=== PATIENT | female | born 1935 | race Asian ===

== ENCOUNTER → 2020-06-03 13:14 | Outpatient (CLI) | payer MEDICARE, OTHER, SELFPAY ==
--- NOTE | 2020-06-03 | DI.MRI.S_ITS ---
PROCEDURE: MR LUMBAR SPINE WO CON INDICATIONS: Other intervertebral disc degeneration, lumbar reg TECHNIQUE: Noncontrast sagittal T1 spin echo and T2 fast echo, sagittal STIR, axial T1 and T2 fast spin echo through the lumbar spine. In cases with scoliosis, additional coronal T2 fast spin echo may be performed. COMPARISON: [facility] Outside Film, RG, SPINE LUMB 2 OR 3VW, 07/30/2019, 10:22. FINDINGS: Image quality: Excellent. Alignment and Curvature: There is minimal retrolisthesis seen at L2-L3, L3-L4, L4-L5, and L5-S1. Qkek-kh-kjngiyis dextroconvex lumbar scoliosis is present. Bone Marrow: Marrow is of normal overall signal. No acute vertebral body compression fractures. Spinal Cord: Conus medullaris terminates at the L1 level. Visualized cord demonstrates normal signal and size. Paraspinous Soft Tissues: No paravertebral masses. T12-L1: At least moderate loss of disc height and disc signal can be seen. Mild generalized disc bulge is seen. No significant neural foraminal or central canal narrowing can be seen. L1-L2: Moderate to severe loss of disc height and disc signal can be seen. Moderate to prominent disc bulge is seen, with a central disc protrusion. Mild facet joint hypertrophy is seen. There is moderate left-sided and moderate to severe right-sided neural foraminal narrowing seen. There is a degree of compression seen upon the exiting right L1 nerve root. Moderate to severe central canal narrowing is seen. L2-L3: Moderate to severe loss of disc height and disc signal can be seen. Endplate irregularity is seen. Reactive marrow endplate changes are seen, which demonstrate mixed T1 weighted and T2-weighted signal, and are attributed to a combination of edema and fatty metaplasia (Modic type I and Modic type II changes). Moderate to prominent disc bulge is seen, with a central/right disc protrusion. Moderate facet joint hypertrophy is seen. Associated hypertrophy of the ligamentum flavum can be seen. There is moderate to severe bilateral neural foraminal narrowing seen. There is a degree of compression seen upon the exiting nerve roots. Severe central canal narrowing is seen, as on series 5, image 12. L3-L4: Moderate loss of disc height is seen. Loss of disc signal is seen. At least moderate disc bulge is seen, which is eccentric to the left. There is a central/left disc extrusion seen, with inferior migration of the disc material. Moderate facet joint hypertrophy is seen. Associated hypertrophy of the ligamentum flavum can be seen. There is moderate to severe right-sided and severe left-sided neural foraminal narrowing seen. There is severe central canal narrowing seen at this level, as on series 5, image 16. L4-L5: The disc height is well-preserved. Loss of disc signal is seen at this level. Moderate disc bulge is seen, with a mild central disc extrusion, with mild inferior migration of the disc material. Moderate facet joint hypertrophy is seen. Associated hypertrophy of the ligamentum flavum can be seen. There is moderate to severe bilateral neural foraminal narrowing seen. There is a degree of compression seen upon the exiting nerve roots. Moderate to severe central canal narrowing is seen at this level. L5-S1: Mild loss of disc height is seen. Loss of disc signal is seen. The least moderate disc bulge is seen, which is eccentric to the right. There is a central disc extrusion, with inferior migration of the disc material. There is an associated annular fissure seen, as on series 2, image 8. At least moderate facet hypertrophy is seen. Associated hypertrophy of the ligamentum flavum can be seen. There is moderate to severe bilateral neural foraminal narrowing seen, with associated exiting nerve root compression. At least moderate central canal narrowing can be seen. IMPRESSION: Multiple levels of prominent degenerative change are seen. There is severe central canal narrowing seen at L2-L3 and L3-L4, with moderate to severe central canal narrowing seen at L1-L2 and L4-L5. Multiple sites of significant neural foraminal narrowing can be seen, with associated exiting nerve root compression. Dictated by: Ian Blackmon M.D. on 06/03/2020 at 14:12 Approved by: Ian Blackmon M.D. on 06/03/2020 at 14:17
== END ==
PROVIDERS: PCP Internal Medicine; Referring Provider Internal Medicine; Visit Provider Internal Medicine
DX: M51.36 Other intervertebral disc degeneration, lumbar region (principal); M48.061 Spinal stenosis, lumbar region without neurogenic claudication
CPT/HCPCS: 72148

== ENCOUNTER → 2020-09-22 14:35 | Outpatient (CLI) | payer MEDICARE, OTHER, SELFPAY ==
--- NOTE | 2020-09-22 | DI.ECHO.S_ITS ---
[facility] +---------+ : : [address] : [place] : : : : [id number] : : : : Phone: [phone] +---------+ Echocardiogram Report + + :Name: TORY CANTU Study Date: 09/22/2020 Height: 59 in : :[facility] ReadingLocation: Weight: 89 lb : : Gender: Female BSA: 1.3 m2 : :: 1935 Age: 85 yrs BP: 124/62 mmHg: :Reason For Study: AORTIC VALVE REPLACEMENT : :Ordering Physician: IRMA, : :YAA Performed By: Dary Rodriguez : :Referring: YAA SOLIS : + + Interpretation Summary The left ventricle is normal in size. The ejection fraction is estimated to be 65-70%. There has been no significant change in LVEF since the previous exam. The right ventricle is normal size. The right ventricular systolic function is normal. There is a bioprosthetic aortic valve. Patient is status post TAVR. The prosthetic aortic valve is well-seated. The peak aortic velocity is 2.4 m/sec. The aortic valve mean gradient is 13.7 mmHg. No aortic regurgitation is present. The IVC is of normal diameter and collapses greater than 50% with a sniff. This suggests a low right atrial pressure of 3 mm Hg. There is mild luminal irregularity and echogenicity in the abdominal aorta, suggestive of aortic atherosclerotic disease. Mild atherosclerotic plaque(s) in the aortic arch. Procedure: A two-dimensional transthoracic echocardiogram with color flow and Doppler was performed. The study quality was technically adequate. Comparison is made with the echocardiogram of 04/09/2017. The patient was in sinus rhythm with heart rates between 66-76 bpm during the exam. Left Ventricle: The left ventricle is normal in size. Proximal septal thickening is noted. Left ventricular wall thickness is mildly increased. There is no thrombus. The ejection fraction is estimated to be 65-70%. There has been no significant change since the previous exam. There are no focal wall motion abnormalities. MV E/A: 1.0 Med Peak E' Stephen: 3.5 cm/sec E/E' med: 33.4. Right Ventricle: The right ventricle is normal size. The right ventricular systolic function is normal. Atria: The left atrium is mildly dilated. Right atrial size is normal. There is no Doppler evidence for an interatrial shunt. Mitral Valve: The mitral valve leaflets appear mildly thickened, but open well. There is mild to moderate mitral annular calcification. There is mild mitral regurgitation. Compared to the prior echo study, there has been a decrease in the severity of mitral regurgitation. Aortic Valve: There is a bioprosthetic aortic valve. The prosthetic aortic valve is well-seated. The peak aortic velocity is 2.4 m/sec. The aortic valve mean gradient is 13.7 mmHg. No aortic regurgitation is present. Tricuspid Valve: The tricuspid valve is normal in structure and function. There is mild tricuspid regurgitation. Pulmonary artery pressures cannot be estimated because of the lack of a measurable TR jet velocity but the IVC suggests a CVP of around 3 mmHg. Pulmonic Valve: The pulmonic valve is not well seen, but is grossly normal. There is no pulmonic valvular regurgitation. Great Vessels: The dimensions of the ascending aorta are normal. Mild atherosclerotic plaque(s) in the aortic arch. There is mild luminal irregularity and echogenicity in the abdominal aorta, suggestive of aortic atherosclerotic disease. The IVC is of normal diameter and collapses greater than 50% with a sniff. This suggests a low right atrial pressure of 3 mm Hg. Pericardium/ Pleura There is no pericardial effusion. There is no pleural effusion. MMode/2D Measurements & Calculations LVIDd: 4.0 cm LVOT diam: 1.7 cm LVIDs: 2.4 cm asc Aorta Diam: 3.1 cm FS: 39.4 % IVSd: 1.00 cm LVPWd: 0.79 cm LV blackmon. diameter/BSA (cm/m^2): 3.0 LV sys. diameter/BSA (cm/m^2): 1.8 LA A2 area: 17.2 cm2 RA long axis: 5.3 cm LA A4 area: 18.5 cm2 RA area: 12.0 cm2 LA length (vol): 4.8 cm RA vol: 23.3 ml LA vol: 56.0 ml RA : 17.8 ml/m2 LA vol index: 42.9 ml/m2 IVC diam: 1.4 cm RVD1 (basal): 2.8 cm TAPSE: 1.6 cm Doppler Measurements & Calculations Ao V2 max: 243.3 cm/sec LVOT Max Stephen: 84.8 cm/sec Ao V2 mean: 176.9 cm/sec LV V1 max P.9 mmHg Ao max P.9 mmHg LV V1 VTI: 19.8 cm Ao mean P.7 mmHg CHARLIE(I,D): 0.87 cm2 Ao V2 VTI: 51.3 cm CHARLIE(V,D): 0.78 cm2 sev ratio: 0.39 CHARLIE indexed to BSA (cm^2/m^2): 0.67 MV E max stephen: 117.1 cm/sec PA V2 max: 112.8 cm/sec MV A max stephen: 115.8 cm/sec PA V2 mean: 74.9 cm/sec MV E/A: 1.0 PA mean P.6 mmHg Med Peak E' Stephen: 3.5 cm/sec PA pr(Accel): 20.8 mmHg E/E' med: 33.4 Lat Peak E' Stephen: 3.6 cm/sec E/E' lat: 32.9 E/e' average: 33.1 MV dec time: 0.28 sec SV(LVOT): 44.7 ml Reading Physician:06:14 PM
== END ==
PROVIDERS: PCP Internal Medicine; Referring Provider Internal Medicine Cardiovascular Disease; Visit Provider Internal Medicine Cardiovascular Disease
DX: I08.1 Rheumatic disorders of both mitral and tricuspid valves (principal); I70.0 Atherosclerosis of aorta; Z95.2 Presence of prosthetic heart valve
CPT/HCPCS: 93306

== ENCOUNTER → 2021-11-28 12:57 | Outpatient (CLI) | payer MEDICARE, OTHER, SELFPAY ==
--- NOTE | 2021-11-28 | DI.ECHO.S_ITS ---
[facility]---------+ [facility] +---------+ : : [address] : [address] [address] : : : : [id number] : : : : Phone: [phone] +---------+ Echocardiogram Report + + :Name: TORY CANTU Study Date: 11/28/2021 Height: 58 in : :[facility] ReadingLocation: Weight: 90 lb : : Gender: Female BSA: 1.3 m2 : :: 1935 Age: 86 yrs BP: 179/82 mmHg: :Reason For Study: Aortic valve replacement - bioprosthetic : :Ordering Physician: IRMA, : :YAA Performed By: Hasmukh Diaz : :Referring: YAA SOLIS : + + Interpretation Summary The left ventricle is normal in size. The ejection fraction is estimated to be 65-70%. Diastolic parameters suggest a pseudonormalization pattern, consistent with probable elevated filling pressures. No significant change from the previous study. The right ventricle is normal in size and function. There is mild to moderate mitral regurgitation. Compared to the prior echo study, there has been an increase in the severity of mitral regurgitation. Deviously mild MR. There is a TAVR aortic valve. The prosthetic aortic valve is well-seated. Ao V2 max: 221.0 cm/sec Ao mean P.0 mmHg The peak aortic velocity on the previous exam was 2.4 m/sec. The IVC is of normal diameter and collapses greater than 50% with a sniff. This suggests a low right atrial pressure of 3 mm Hg. Procedure: A two-dimensional transthoracic echocardiogram with color flow and Doppler was performed. The study quality was technically adequate. Comparison is made with the echocardiogram of 09/22/2020. The patient was in normal sinus rhythm during the exam. Left Ventricle: The left ventricle is normal in size. Proximal septal thickening is noted. There is no echo evidence for significant left ventricular outflow tract obstruction. There is no thrombus. Left ventricular systolic function is normal. The ejection fraction is estimated to be 65-70%. There are no focal wall motion abnormalities. Diastolic parameters suggest a pseudonormalization pattern, consistent with probable elevated filling pressures. There has been no significant change since the previous study. Right Ventricle: The right ventricle is normal in size and function. Atria: The left atrium is severely dilated. The left atrium has significantly increased in size since the prior echo exam. Right atrial size is normal. The interatrial septum grossly appears intact with no obvious evidence for an atrial septal defect. Mitral Valve: There is mild to moderate mitral annular calcification. The mitral valve leaflets are mildly calcified. There is mild to moderate mitral regurgitation. Compared to the prior echo study, there has been an increase in the severity of mitral regurgitation. Aortic Valve: There is a TAVR aortic valve. The prosthetic aortic valve is well-seated. Ao V2 max: 221.0 cm/sec Ao mean P.0 mmHg. The peak aortic velocity on the previous exam was 2.4 m/sec. No aortic regurgitation is present. Tricuspid Valve: The tricuspid valve is normal in structure and function. Pulmonary artery pressures cannot be estimated because of the lack of a measurable TR jet velocity. There is trace tricuspid regurgitation. Pulmonic Valve: The pulmonic valve is not well visualized. There is no pulmonic valvular regurgitation. Great Vessels: The aortic root is not well visualized. The ascending aorta could not be visualized. Aortic arch not well visualized. The IVC is of normal diameter and collapses greater than 50% with a sniff. This suggests a low right atrial pressure of 3 mm Hg. Pericardium/ Pleura There is no pericardial effusion. There is no pleural effusion. MMode/2D Measurements & Calculations LVIDd: 4.2 cm LA dimension: 2.9 cm LVIDs: 2.8 cm LA A2 area: 19.1 cm2 FS: 33.3 % LA A4 area: 18.6 cm2 IVSd: 0.90 cm LA length (vol): 5.2 cm LVPWd: 0.90 cm LA vol: 58.4 ml LV blackmon. diameter/BSA (cm/m^2): 3.2 LA vol index: 45.1 ml/m2 LV sys. diameter/BSA (cm/m^2): 2.2 RA long axis: 5.2 cm TAPSE_phl: 1.9 cm Doppler Measurements & Calculations Ao V2 max: 221.0 cm/sec LVOT Max Stephen: 96.0 cm/sec Ao V2 mean: 153.0 cm/sec LV V1 max P.7 mmHg Ao max P.0 mmHg LV V1 VTI: 25.2 cm Ao mean P.0 mmHg sev ratio: 0.51 Ao V2 VTI: 49.2 cm MV E max stephen: 126.0 cm/sec AV VR_phl: 0.43 MV A max stephen: 116.0 cm/sec MV E/A: 1.1 Med Peak E' Stephen: 3.5 cm/sec E/E' med: 36.2 Lat Peak E' Stephen: 7.7 cm/sec E/E' lat: 16.3 E/e' average: 26.2 MV dec time: 0.25 sec MV P1/2t-pr_phl: 73.0 msec Reading Physician:12:46 PM
== END ==
PROVIDERS: PCP Internal Medicine; Referring Provider Internal Medicine Cardiovascular Disease; Visit Provider Internal Medicine Cardiovascular Disease
DX: I34.0 Nonrheumatic mitral (valve) insufficiency (principal); R53.83 Other fatigue; Z95.2 Presence of prosthetic heart valve
CPT/HCPCS: 93306

== ENCOUNTER → 2023-11-28 13:39 | Outpatient (CLI) | payer MEDICARE, OTHER, SELFPAY ==
--- NOTE | 2023-11-28 13:40 | DI.ECHO.S_ITS ---
[facility]---------+ [facility] : : [address] : : [place] : : [id number] : : Phone: [phone] Echocardiogram Report + + :Name: TORY CANTU Study Date: 11/28/2023 Height: 58 in : :[facility] ReadingLocation: Weight: 85 lb : : Gender: Female BSA: 1.3 m2 : :: 1935 Age: 88 yrs BP: 165/89 mmHg: :Reason For Study: S/P TAVR : :Ordering Physician: IRMA, : :YAA Performed By: Dary Rodriguez : :Referring: YAA SOLIS : + + Interpretation Summary The left ventricle is normal in size. The left ventricular ejection fraction is normal. Left ventricular ejection fraction is estimated to be 65 +/- 5%. There has been no significant change since the previous exam. Diastolic parameters suggest a pseudonormalization pattern, consistent with probable elevated filling pressures. The right ventricle is normal in size and function. Moderate to severe mitral annulus calcification. The mitral valve mean gradient is 3.9 mmHg. There is mild mitral stenosis. There is moderate mitral regurgitation. Previously mild to moderate MR. There is a bioprosthetic aortic valve. The prosthetic aortic valve is well-seated. The peak aortic velocity is 2.3 m/sec. The aortic valve mean gradient is 12 mmHg. The peak aortic velocity on the previous exam was 2.2 m/sec. The right ventricular systolic pressure is estimated to be at least 35 mmHg based on an estimated right atrial pressure of 3 mm Hg. Procedure: A two-dimensional transthoracic echocardiogram with color flow and Doppler was performed. The study quality was technically adequate. Comparison is made with the echocardiogram of 11/28/2021. The patient was in sinus rhythm with heart rates between 58-63 bpm during the exam. Left Ventricle: The left ventricle is normal in size. Proximal septal thickening is noted. There is no thrombus. The left ventricular ejection fraction is normal. Left ventricular ejection fraction is estimated to be 65 +/- 5%. There has been no significant change since the previous exam. There are no focal wall motion abnormalities. Diastolic parameters suggest a pseudonormalization pattern, consistent with probable elevated filling pressures. There has been no significant change since the previous study. Right Ventricle: The right ventricle is normal in size and function. Atria: The left atrium is severely dilated. There has been no significant change since the previous study. Right atrial size is normal. There is no Doppler evidence for an interatrial shunt. Mitral Valve: There is moderate to severe mitral annular calcification. The mitral valve leaflets are mildly calcified. The mitral valve chordae are thickened and/or calcified. The mitral valve mean gradient is 3.9 mmHg. There is mild mitral stenosis. There is moderate mitral regurgitation. Aortic Valve: There is a bioprosthetic aortic valve. The prosthetic aortic valve is well-seated. The peak aortic velocity is 2.3 m/sec. The aortic valve mean gradient is 12 mmHg. The peak aortic velocity on the previous exam was 2.2 m/sec. No aortic regurgitation is present. Tricuspid Valve: The tricuspid valve is normal in structure and function. There is trace tricuspid regurgitation. The right ventricular systolic pressure is estimated to be at least 35 mmHg based on an estimated right atrial pressure of 3 mm Hg. Pulmonic Valve: The pulmonic valve leaflets are thin and pliable; valve motion is normal. There is trace pulmonic regurgitation. Great Vessels: The dimensions of the ascending aorta are normal. There is mild luminal irregularity and echogenicity in the abdominal aorta, suggestive of aortic atherosclerotic disease. The aortic arch could not be visualized. The IVC is of normal diameter and collapses greater than 50% with a sniff. This suggests a low right atrial pressure of 3 mm Hg. Pericardium/ Pleura There is no pericardial effusion. There is no pleural effusion. MMode/2D Measurements & Calculations LVIDd: 4.6 cm LVOT diam: 2.0 cm LVIDs: 2.7 cm asc Aorta Diam: 3.3 cm FS: 40.3 % IVSd: 0.89 cm LVPWd: 0.86 cm LV blackmon. diameter/BSA (cm/m^2): 3.6 LV sys. diameter/BSA (cm/m^2): 2.2 LA A2 area: 21.5 cm2 RA long axis: 5.5 cm LA A4 area: 19.2 cm2 RA area: 13.0 cm2 LA length (vol): 5.4 cm RA vol: 26.2 ml LA vol: 64.1 ml RA : 20.7 ml/m2 LA vol index: 50.7 ml/m2 IVC diam: 1.1 cm RVD1 (basal): 3.0 cm RVD2 (mid): 2.5 cm TAPSE: 1.7 cm Doppler Measurements & Calculations Ao V2 max: 226.1 cm/sec LVOT Max Stephen: 78.9 cm/sec Ao V2 mean: 162.4 cm/sec LV V1 max P.5 mmHg Ao max P.2 mmHg LV V1 VTI: 20.3 cm Ao mean P.6 mmHg CHARLIE(I,D): 1.2 cm2 Ao V2 VTI: 52.2 cm CHARLIE(V,D): 1.1 cm2 sev ratio: 0.39 CHARLIE indexed to BSA (cm^2/m^2): 0.95 MV E max stephen: 132.8 cm/sec TR max stephen: 282.7 cm/sec MV A max stephen: 106.8 cm/sec TR max P.0 mmHg MV E/A: 1.2 PA V2 max: 100.5 cm/sec Med Peak E' Stephen: 4.2 cm/sec PA V2 mean: 80.3 cm/sec E/E' med: 31.8 PA mean P.7 mmHg Lat Peak E' Stephen: 5.8 cm/sec PA pr(Accel): 36.2 mmHg E/E' lat: 22.7 E/e' average: 27.2 MV dec time: 0.30 sec MVA(VTI): 1.1 cm2 MV V2 mean: 93.7 cm/sec SV(LVOT): 63.1 ml MV mean P.9 mmHg MV V2 VTI: 54.9 cm Reading Physician:03:16 PM
== END ==
PROVIDERS: PCP Internal Medicine; Referring Provider Internal Medicine Cardiovascular Disease; Visit Provider Internal Medicine Cardiovascular Disease
DX: I34.81 Nonrheumatic mitral (valve) annulus calcification (principal); I34.0 Nonrheumatic mitral (valve) insufficiency; Z95.2 Presence of prosthetic heart valve
CPT/HCPCS: 93306